=== PATIENT | male | born 1975 | race Native Hawaiian/Other Pacific Islander ===

== ENCOUNTER → 2019-07-10 09:22 | Outpatient (CLI) | payer BC, SELFPAY ==
[2019-07-10 10:26] LABS: Alanine Aminotransferase 112 IU/L (21-72); Albumin 4.9 g/dL (3.5-5.0); Albumin Globulin Ratio 1.4 (1.0-2.8); Alkaline Phosphatase 62 U/L (38-126); Aspartate Aminotransferase 55 IU/L (17-59); BUN Creatinine Ratio 18.2 (6-22); Bilirubin Total 0.8 mg/dL (0.2-1.3); Blood Urea Nitrogen 20 mg/dL (9-20); Calcium 9.6 mg/dL (8.4-10.2); Carbon Dioxide 29 mmol/L (22-32); Chloride 99 mmol/L (98-107); Cholesterol 215 mg/dL (140-199); Estimated Glomerular Filt Rate > 60.0 mL/min (>60); Globulin 3.6 g/dL (1.7-4.1); Glucose 96 mg/dL (70-100); HDL Cholesterol 54 mg/dL (40-60); HEMOLYSIS < 15 (0-50); LDL Cholesterol Calculated 124 mg/dL (<100); Potassium 4.2 mmol/L (3.4-5.1); Sodium 139 mmol/L (137-145); Total Protein 8.5 g/dL (6.3-8.2); Triglycerides 187 mg/dL (35-150)
[2019-07-10 10:35] LABS: Hematocrit 48.1 % (41-53); Hemoglobin 16.4 g/dL (13.5-17.5); Mean Corpuscular HGB Conc 34.1 % (30-36); Mean Corpuscular Hemoglobin 30.8 PG (26-34); Mean Corpuscular Volume 90.1 fL (80-100); Platelet Count 209 X10^3/uL (150-400); Red Blood Cell Count 5.34 X10^6/uL (4.5-5.9); Red Cell Distribution Width 12.3 % (11.6-14.8); White Blood Cell Count 6.3 X10^3/uL (4.5-11.0)
== END ==
PROVIDERS: Visit Provider Nurse Practitioner Family
DX: Z00.00 Encounter for general adult medical examination without abnormal findings (principal); Z13.6 Encounter for screening for cardiovascular disorders
CPT/HCPCS: 36415; 80053; 80061; 85027

== ENCOUNTER 2019-07-30 14:30 | Day surgery (SDC) | payer BC, SELFPAY ==
[2019-07-30] VITALS (7 sets, daily range): BP systolic 119–149; BP diastolic 82–101; PULSE 66–92; RESP 6–16; TEMP 36.5–37.4; O2SAT 94–99; BMI 29.1
--- NOTE | 2019-07-30 | PATH_ITS ---
[facility] Accession Number: [id number] . 01 Material submitted: . colon - COLON POLYPS AT 30 CM . 02 Diagnosis: Colon Polyps at 30 cm: Portions of tubular adenoma x2. MRV 07/31/2019 1309 Local . 02 Electronically signed: . Rita Chapman MD, Pathologist NPI- [id number] . 01 Gross description: . COLON POLYPS AT 30 CM: Received in formalin are 2 fragment(s) of brunson, soft tissue measuring 0.1 x 0.1 x 0.1 cm to 0.4 x 0.3 x 0.2 cm submitted entirely in 1 cassette(s) /[facility] 07/31/2019 0025 Local . 02 Pathologist provided ICD-10: K63.5, Z12.11, K21.9 . 02 CPT . 264041 Performed at: [address] [facility] [address] [facility], [place], [place] [id number] MD Yazan Almaraz MD Phone: [phone] Performed at: [address] [facility] [address] [place], [place] [id number] MD Cherie Pacheco MD Phone: [phone]
[2019-07-30] MEDS: SODIUM CHLORIDE 0.9% 1,000 ML 200 ML IV (15:20)
--- NOTE | 2019-07-30 15:25 | PM.HP.1 ---
History of Present Illness History of Present Illness Chief complaint: [id number] Narrative: This is a 43 y.o man with longstanding GERD x 20 yrs no prior upper endoscopy.. Symptoms are well controlled with Omeprazole 20 mg QD. No dysphagia, hx of ulcer, weight loss. In addition they had recent bright red blood per rectum. Patient presents for colorectal screening. They have never had any previous examination for such. On further history denies any recent gastrointestinal symptoms. Patient History Medical History Chronic back pain (Chronic) GERD (gastroesophageal reflux disease) (Acute 2008) Headache (Chronic) Kidney stones (Chronic) Migraine with aura (Acute 1996) Mixed hyperlipidemia (Acute 06/2019) Family & Social History Family History Father Cancer Diabetes mellitus Brother Hypertension Grandfather Cancer Hypertension Social History: household members significant other Tobacco & Substance use: Smoking Status Former smoker alcohol intake current Meds Home Medications and Allergies Home Medications Medication Instructions Recorded Confirmed Type omeprazole 20 mg capsule,delayed 20 mg PO DAILY #90 cap 07/09/19 07/30/19 Rx release lwdvasv-fyfybvgwkssfd-yhtqobkc 250 1 tab PO Q4-6H PRN 07/22/19 07/30/19 History mg-250 mg-65 mg tablet Allergies Allergy/AdvReac Type Severity Reaction Status Date / Time No Known Drug Allergies Allergy Verified 07/30/19 14:57 Review of Systems Review of Systems ROS Unobtainable: All systems reviewed & are unremarkable except as noted in HPI and below Exam Vital Signs (past 8 hours): - 07/30/19 14:59 Temperature 97.7 F Pulse Rate 92 H Respiratory Rate 16 Blood Pressure 149/89 H Pulse Oximetry 96 Oxygen Delivery Method Room Air Narrative Exam Narrative: General-no acute distress, well nourished HEENT-moist mucous membranes, no scleral icterus Neck-supple, no lymphadenopathy Chest- non labored respirations, clear to auscultation bilaterally Cardiac-regular rate no peripheral edema Abdomen-soft, nontender, non distended Extremities-warm, well perfused Neurological-alert and oriented, no focal deficits Assessment & Plan Assessment & Plan narrative: The patient requires colorectal screening and colonoscopy is recommended. In addition they require EGD for screening secondary to longstanding GERD. Technical details were discussed. Risks, benefits, alternatives explained. Risks including but not limited to myocardial infarction, aspiration, bleeding, pain, missed lesion, incomplete examination, need for further radiographic studies, colonic perforation, and need for major abdominal surgery were discussed. All questions were answered to their satisfaction, and they are in agreement with this plan.
[2019-07-30] MEDS: LIDOCAINE 4% SOLN 50 ML 20 ML TOP (15:40)
[2019-07-30] MEDS: MIDAZOLAM 5 MG/5 ML VIAL IV ×2 (15:45→15:54)
[2019-07-30] MEDS: fentaNYL 250 MCG/5 ML INJ IV (15:54)
--- NOTE | 2019-07-30 16:23 | PM.OP.1 ---
Operative Date/Time/Diagnoses Date of procedure: 07/30/19 Time of procedure: 16:24 Pre-op diagnosis: Rectal bleeding Chronic gastroesophageal reflux disease Post-op diagnosis: same Procedure & Clinicians Procedure: Esophagoduodenoscopy Colonoscopy Same procedure as scheduled: Yes Indications: This is a 43-year-old male with 20 years of gastroesophageal reflux disease who presents for screening esophagoduodenoscopy. In addition he had recently had some episodes of bright red blood per rectum which have spontaneously resolved. Surgeon: Michael Sun Anesthesia Type: General Operative Notes Findings: Adenomatous appearing polyp at 30 cm from anal verge Specimen(s): other (polyp at 30 cm from anal verge) Procedure in detail: Patient placed in left lateral decubitus position. Time out was performed. Procedural sedation was administered with Versed and Fentanyl. A bite block was placed. the scope was inserted into the mouth and advanced through the esophagus and into the stomach. The pylorus was intubated and the duodenum was normal. The scope was retroflexed within the stomach and there was no hiatal hernia. No ulcers, or gastritis. The scope was withdrawn into the esophagus the Z line was seen at 40 cm from the incisions. There was no harris's esophagitis or masses or strictures. Stomach was desufflated and scope removed. Patient placed in left lateral decubitus position. Time out was performed. Procedural sedation was administered with Versed and Fentanyl. A rectal exam demonstrated no external hemorrhoids no internal masses. Colonoscopy scope was placed into the rectum and advanced through the colon to the cecum. The ileocecal valve was identified. The scope was then slowly withdrawn examining colon thoroughly in all directions. The colonoscopy was notable for the following 1. Adenomatous appearing polyp at 30 cm resected with hot snare and hemostatic 2. Good quality prep 3. Scope withdrawl time 16 min, sedation time 40 min Post-operative Disposition: same day surgery
--- NOTE | 2019-07-30 17:20 | SUR.PHASEII ---
Reviewed DC instructions w/family member. IV D/C'd and pt independent in dressing. VSS . Escorted by [facility] to ED entrance
== END 2019-07-30 17:25 | disposition home or self-care (01) ==
PROVIDERS: Family Provider Nurse Practitioner Family; PCP Nurse Practitioner Family; Visit Provider Surgery
PROC: 0DJ08ZZ Inspection of Upper Intestinal Tract, Via Natural or Artificial Opening Endoscopic (ICD-10-PCS; CPT 43235; principal; 2019-07-30 16:00)
PROC: 0DJD8ZZ Inspection of Lower Intestinal Tract, Via Natural or Artificial Opening Endoscopic (ICD-10-PCS; CPT 45378; 2019-07-30 16:00)
DX: K62.5 Hemorrhage of anus and rectum (principal); K21.9 Gastro-esophageal reflux disease without esophagitis; K63.5 Polyp of colon
CPT/HCPCS: 45385; 43235; 99152; 99153; J2250; J3010

== ENCOUNTER 2019-08-03 01:11 | Emergency (ER) | payer BC, SELFPAY ==
[2019-08-03 01:27] VITALS: BP 145/79; PULSE 81; RESP 16; TEMP 36.7; O2SAT 97
--- NOTE | 2019-08-03 01:40 | DI.CT.S_ITS ---
PROCEDURE: CT ABDOMEN PELVIS W CON INDICATIONS: Recent colonoscopy with abdominal pain and rectal bleeding TECHNIQUE: After the administration of intravenous contrast, 5 mm thick sections acquired from the diaphragm to the symphysis. 5 mm coronal and sagittal reformats were acquired. For radiation dose reduction, the following was used: automated exposure control, adjustment of mA and/or kV according to patient size. COMPARISON: None. FINDINGS: Image quality: Excellent. ABDOMEN: Lung bases: Lung bases are clear. Heart size is normal. Solid organs: Liver is normal in size and enhancement. Gallbladder is normal. Biliary system is non dilated. Pancreas enhances normally. Spleen is normal in size and enhancement. No adrenal nodules. Kidneys demonstrate normal size and enhancement, without hydronephrosis. Probable 2 mm nonobstructive left renal stone. A 1 cm exophytic cortical nodule in the inferior pole of the right kidney is most likely a cyst. Peritoneum and bowel: Bowel loops demonstrate normal wall thickness and caliber. There are a few colonic diverticula. No free fluid or air. Nodes and vessels: No retroperitoneal or mesenteric adenopathy by size criteria. Aorta and inferior vena cava are normal in size. Miscellaneous: No ventral hernias. PELVIS: Genitourinary: Bladder wall thickness is normal. Miscellaneous: No inguinal hernias or adenopathy. Bones: Sclerotic bony lesions in the left femoral head are consistent with bone islands. No vertebral body compression fractures. IMPRESSION: 1. No acute intra-abdominal process. 2. Mild diverticulosis without diverticulitis. 3. A 2 mm nonobstructive left renal stone is suspected. No significant discrepancy with the drafter refrigeration radiology preliminary report. Dictated by: Alon Mendez M.D. on 08/03/2019 at 7:27 Approved by: Alon Mendez M.D. on 08/03/2019 at 7:32
--- NOTE | 2019-08-03 01:41 | ED_ITS ---
HPI - GI Bleed General Chief complaint: GI Bleed Stated complaint: rectal bleeding, had colonoscopy thurs Time Seen by Provider: 08/03/19 01:31 Source: patient Mode of arrival: Ambulatory Limitations: no limitations History of Present Illness HPI Narrative: 43-year-old male here for evaluation of rectal bleeding. Three days ago he underwent a upper endoscopy and colonoscopy. According to that operative report he did have 1 polyp removed. This colonoscopy was performed because the patient was having episodes of rectal bleeding. According to the operative note did seem to be fairly uncomplicated procedure. Patient states that he has had a normal bowel movement since the procedure. On Saturday he had 1 episode of some bright red blood on the toilet paper after he wiped. He then states that today he was at work when he had some abdominal pain. States that he felt like he had to go to the bathroom and when he went to have a bowel movement it was a large clot of bright red blood. He does feel like that is abdomen is somewhat distended. No fevers. Related Data Home Medications Medication Instructions Recorded Confirmed dccfsad-pacxgtavflfrl-dtyxiflk 250 1 tab PO Q4-6H PRN 07/22/19 07/30/19 mg-250 mg-65 mg tablet Previous Rx's Medication Instructions Recorded omeprazole 20 mg capsule,delayed 20 mg PO DAILY #90 cap 07/09/19 release Allergies Allergy/AdvReac Type Severity Reaction Status Date / Time No Known Drug Allergies Allergy Verified 07/30/19 14:57 Review of Systems Constitutional Constitutional: Denies fever(s) Cardiovascular Cardiovascular: Denies chest pain and Denies dyspnea Respiratory Respiratory: Denies dyspnea Gastrointestinal Gastrointestinal: Denies abdominal pain, Reports bloating, Reports cramping and Denies vomiting Comments: Rectal bleeding Genitourinary Genitourinary: Denies dysuria Musculoskeletal Musculoskeletal: Denies myalgias and Denies arthralgias Integumentary/Breasts Skin/Breast: Denies rash Neurologic Neurologic: Denies behavioral changes Psychiatric Psychiatric: Denies behavioral changes Hematologic/Lymphatic Hematologic/Lymphatic: Denies easy bleeding and Denies easy bruising Patient History Medical History Chronic back pain (Chronic) GERD (gastroesophageal reflux disease) (Acute 2008) Headache (Chronic) Kidney stones (Chronic) Migraine with aura (Acute 1996) Mixed hyperlipidemia (Acute 06/2019) Social History household members: significant other Smoking Status: Former smoker Tobacco: How many years used: 1 Smokeless tobacco user: chewing tobacco (2 cans per day.) quit status: considering quitting second hand exposure: No alcohol intake: current (a glass of wine or one beer once every couple weeks) substance use type: does not use alcohol intake frequency: holidays/special occasions only Substance Use Type: does not use Exam Initial Vital Signs Initial Vital Signs: Vital Signs Temperature 98.1 F 08/03/19 01:27 Pulse Rate 81 08/03/19 01:27 Respiratory Rate 16 08/03/19 01:27 Blood Pressure 145/79 H 08/03/19 01:27 Pulse Oximetry 97 08/03/19 01:27 Const General: cooperative, comfortable and well developed Orientation: alert and awake HENMT Head: normal to inspection and normocephalic Resp Effort & Inspection: normal respiratory effort Auscultation: clear to auscultation bilaterally Cardio Rate: regular rate Rhythm: regular rhythm GI Inspection: distended Palpation: soft, No firm and No tender Skin Lesions: no lesions Rashes: no rashes Neuro General: alert and awake Cognition: normal cognition Speech: speech normal Motor: muscle tone normal throughout Extrem General: normal to inspection and capillary refill normal Psych Appearance: grossly normal and well kempt Course Orders Ordered: ED Orders 08/03/19 01:40 CT abdomen pelvis w con Stat CBC Auto Diff [Complete Blood Count AUTO DIFF] Stat Comprehensive Metabolic Panel Stat Lipase Stat Discontinued Medications Sodium Chloride (Normal Saline 0.9%) 1,000 mls @ 1,000 mls/hr IV BOLUS ONE Stop: 08/03/19 02:39 Last Admin: 08/03/19 02:39 Dose: 1,000 mls/hr Documented by: ARUN Vital Signs Vital signs: Vital Signs - 8 hr 08/03/19 01:27 Temperature 98.1 F Pulse Rate 81 Respiratory Rate 16 Blood Pressure 145/79 H Pulse Oximetry 97 MDM - GI Bleed Lab Data Attestation: I reviewed the patient's lab results. Result diagrams: 08/03/19 01:40 08/03/19 01:40 Labs: Lab Results 08/03/19 08/03/19 Range/Units 01:40 01:40 WBC 6.6 (4.5-11.0) X10^3/uL RBC 4.95 (4.5-5.9) X10^6/uL Hgb 15.2 (13.5-17.5) g/dL Hct 43.9 (41-53) % MCV 88.8 (80-100) fL MCH 30.6 (26-34) PG MCHC 34.5 (30-36) % RDW 12.2 (11.6-14.8) % Plt Count 202 (150-400) X10^3/uL Neut % (Auto) 61.9 (50-75) % Lymph % (Auto) 26.7 (25-40) % [place] % (Auto) 6.8 (3-14) % Eos % (Auto) 4.0 (2-4) % Baso % (Auto) 0.6 (0-2) % Neut # (Auto) 4100 (7265-0915) /uL Lymph # (Auto) 1800 (2091-7523) /uL [place] # (Auto) 400 (0-900) /uL Eos # (Auto) 300 (0-450) /uL Baso # (Auto) 0 (0-100) /uL Sodium 137 (137-145) mmol/L Potassium 3.9 (3.4-5.1) mmol/L Chloride 101 (98-107) mmol/L Carbon Dioxide 29 (22-32) mmol/L BUN 16 (9-20) mg/dL Creatinine 1.10 (0.66-1.25) mg/dL Estimated GFR > 60.0 (>60) mL/min BUN/Creatinine Ratio 14.5 (6-22) Glucose 105 H (70-100) mg/dL Calcium 9.3 (8.4-10.2) mg/dL Total Bilirubin 0.6 (0.2-1.3) mg/dL AST 39 (17-59) IU/L ALT 66 H (<50) IU/L Alkaline Phosphatase 57 (38-126) U/L Total Protein 7.7 (6.3-8.2) g/dL Albumin 4.7 (3.5-5.0) g/dL Globulin 3.0 (1.7-4.1) g/dL Albumin/Globulin Ratio 1.6 (1.0-2.8) Lipase 110 (23-300) U/L Imaging Data CT scan - abdomen: Radiologist's impression: No acute abnormality appreciated. No colon wall trauma is apparent. Small nonobstructing left renal stone. Small right renal cyst MDM Narrative Medical decision making narrative: Patient does have a relatively benign abdominal exam. Labs unremarkable. CT scan was performed because he was having some abdominal distension and given his recent history of a colonoscopy the concern was for potential perforation. There is no signs of free air on the CT scan. I do suspect that the rectal bleeding is secondary to the colonoscopy and the polyp removal. I provided reassurance to the patient. I do not feel that emergent surgical consultation is needed. Patient was instructed to continue all of his postoperative instructions. He expressed understanding and agreement plan. Discharge Plan Departure Patient Disposition: Home Clinical Impression: Rectal bleeding Instructions: DI for Rectal Bleeding Activity Restrictions/Additional Instructions: I do suspect that the bleeding is secondary to the polyp removal from your recent colonoscopy. Recommend that you follow all of your postoperative instructions given by the surgeon. Keep all of your scheduled medical appoin tments. Return to the emergency department for any new or worsening symptoms Prescriptions: No Action omeprazole 20 mg capsule,delayed release(DR/EC) 20 mg PO DAILY Qty: 90 RF: 0 Excedrin Migraine 250-250-65 mg tablet 1 tab PO Q4-6H PRN (Reason: Headache) RF: 0 Referrals: Baldomero Lopez ARNP [Primary Care Provider] -
[2019-08-03 01:51] LABS: Add Manual Diff / Slide Review NO; Basophils Absolute Auto 0 /uL (0-100); Basophils Percent Auto 0.6 % (0-2); Eosinophils Absolute Auto 300 /uL (0-450); Hematocrit 43.9 % (41-53); Hemoglobin 15.2 g/dL (13.5-17.5); Lymphocytes Absolute Auto 1800 /uL (1100-4500); Lymphocytes Percent Auto 26.7 % (25-40); Mean Corpuscular HGB Conc 34.5 % (30-36); Mean Corpuscular Hemoglobin 30.6 PG (26-34); Mean Corpuscular Volume 88.8 fL (80-100); Monocytes Absolute Auto 400 /uL (0-900); Monocytes Percent Auto 6.8 % (3-14); Neutrophils Absolute Auto 4100 /uL (1500-7000); Neutrophils Percent Auto 61.9 % (50-75); Platelet Count 202 X10^3/uL (150-400); Red Blood Cell Count 4.95 X10^6/uL (4.5-5.9); Red Cell Distribution Width 12.2 % (11.6-14.8); White Blood Cell Count 6.6 X10^3/uL (4.5-11.0)
[2019-08-03 02:02] LABS: Alanine Aminotransferase 66 IU/L (<50); Albumin 4.7 g/dL (3.5-5.0); Albumin Globulin Ratio 1.6 (1.0-2.8); Alkaline Phosphatase 57 U/L (38-126); Aspartate Aminotransferase 39 IU/L (17-59); BUN Creatinine Ratio 14.5 (6-22); Bilirubin Total 0.6 mg/dL (0.2-1.3); Blood Urea Nitrogen 16 mg/dL (9-20); Calcium 9.3 mg/dL (8.4-10.2); Carbon Dioxide 29 mmol/L (22-32); Chloride 101 mmol/L (98-107); Estimated Glomerular Filt Rate > 60.0 mL/min (>60); Glucose 105 mg/dL (70-100); HEMOLYSIS < 15 (0-50); Lipase 110 U/L (23-300); Potassium 3.9 mmol/L (3.4-5.1); Sodium 137 mmol/L (137-145); Total Protein 7.7 g/dL (6.3-8.2)
[2019-08-03] MEDS: SODIUM CHLORIDE 0.9% 1,000 ML 1000 ML IV (02:39)
[2019-08-03 03:50] VITALS: BP 138/79; PULSE 75; RESP 16; TEMP 36.6; O2SAT 97
== END 2019-08-03 03:50 | disposition home or self-care (01) ==
PROVIDERS: Emergency Provider Emergency Medicine; Family Provider Nurse Practitioner Family; PCP Nurse Practitioner Family
DX: K62.5 Hemorrhage of anus and rectum (principal); Z86.010 Personal history of colon polyps
CPT/HCPCS: 36415; 74177; 80053; 83690; 85025; 96360; 99283; 99284; Q9967

== ENCOUNTER 2021-07-13 20:09 | Emergency (ER) | payer BC, SELFPAY ==
[2021-07-13 20:22] VITALS: BP 135/87; PULSE 120; RESP 18; TEMP 37.6; O2SAT 93; BMI 29.2
--- NOTE | 2021-07-13 20:26 | DI.RAD.S_ITS ---
PROCEDURE: XR CHEST 2V INDICATIONS: sob,covid positive TECHNIQUE: 2 views of the chest were acquired. COMPARISON: None. FINDINGS: Surgical changes and devices: None. Lungs and pleura: Patchy bilateral mid and lower lung alveolar opacities predominantly in the periphery. No pleural effusion or pneumothorax. Mediastinum: Mediastinal contours are normal. Heart size is normal. Bones and chest wall: No suspicious bony abnormalities. Soft tissues appear unremarkable. IMPRESSION: 1. Multifocal bilateral mid and lower lung alveolar opacities consistent with history of COVID-19 pneumonia. Dictated by: Raquel Pastor M.D. on 07/13/2021 at 21:17 Approved by: Raquel Pastor M.D. on 07/13/2021 at 21:18
[2021-07-13 21:36] VITALS: PULSE 96; O2SAT 96
[2021-07-13 22:00] VITALS: BP 137/91; PULSE 97; RESP 22; O2SAT 96
--- NOTE | 2021-07-13 22:00 | PC.NURSE ---
Reports Covid+ for 8 days, tested at [facility].
[2021-07-13] MEDS: KETOROLAC 30 MG/ML VIAL 15 MG IV (22:22)
[2021-07-13 22:29] LABS: Add Manual Diff / Slide Review NO; Basophils Absolute Auto 0 /uL (0-100); Basophils Percent Auto 0.2 % (0-2); Eosinophils Absolute Auto 0 /uL (0-450); Eosinophils Percent Auto 0.2 % (2-4); Hematocrit 48.6 % (41-53); Lymphocytes Absolute Auto 700 /uL (1100-4500); Mean Corpuscular Hemoglobin 29.7 PG (26-34); Mean Corpuscular Volume 90.2 fL (80-100); Monocytes Absolute Auto 400 /uL (0-900); Monocytes Percent Auto 8.2 % (3-14); Neutrophils Absolute Auto 3200 /uL (1500-7000); Neutrophils Percent Auto 74.4 % (50-75); Platelet Count 116 X10^3/uL (150-400); Red Blood Cell Count 5.39 X10^6/uL (4.5-5.9); Red Cell Distribution Width 12.4 % (11.6-14.8); White Blood Cell Count 4.3 X10^3/uL (4.5-11.0)
[2021-07-13 22:30] VITALS: BP 134/86; PULSE 101; TEMP 39.1; O2SAT 97
[2021-07-13 22:32] LABS: Alanine Aminotransferase 79 IU/L (<50); Albumin 4.3 g/dL (3.5-5.0); Albumin Globulin Ratio 1.2 (1.0-2.8); Alkaline Phosphatase 122 U/L (38-126); Aspartate Aminotransferase 59 IU/L (17-59); BUN Creatinine Ratio 8.2 (6-22); Bilirubin Total 0.4 mg/dL (0.2-1.3); Blood Urea Nitrogen 9 mg/dL (9-20); Calcium 8.8 mg/dL (8.4-10.2); Carbon Dioxide 31 mmol/L (22-32); Chloride 97 mmol/L (98-107); Creatine Kinase 80 U/L (55-170); Estimated Glomerular Filt Rate > 60.0 mL/min (>60); Globulin 3.5 g/dL (1.7-4.1); Glucose 109 mg/dL (70-100); HEMOLYSIS < 15 (0-50); Potassium 3.8 mmol/L (3.4-5.1); Sodium 137 mmol/L (137-145); Total Protein 7.8 g/dL (6.3-8.2)
[2021-07-13 22:34] LABS: D Dimer 204 ng/mL (<230)
[2021-07-13] MEDS: ACETAMINOPHEN 325 MG TABLET 975 MG PO (22:38)
[2021-07-13 22:45] LABS: NT-proBNP (BNP-Adult 18+) < 11 pg/mL (<125); Troponin I < 0.012 ng/mL (0.01-0.034)
[2021-07-13 23:00] VITALS: BP 120/78; PULSE 94; O2SAT 97
[2021-07-13 23:30] VITALS: BP 113/77; PULSE 85; O2SAT 96
--- NOTE | 2021-07-13 23:41 | ED.SOB ---
HPI - SOB/Dyspnea General Chief Complaint: Upper Respiratory Symptoms Stated Complaint: covid +, cough, short of breath Time Seen by Provider: 07/13/21 22:18 Source: patient Mode of arrival: Ambulatory Limitations: no limitations History of Present Illness HPI Narrative: This is a 45-year-old testing COVID positive 8 days ago. Patient initially started with chills, fevers and myalgias some mild nausea. He developed shortness of breath in the last 24 hours. He has also had generalized body aches but some right lower back discomfort. Patient states he continues to be nauseated. He denies any diarrhea or constipation. He has not had any urinary issues, no frequency dysuria or difficulty with urination. Patient has not any rashes or skin changes. He denies any medical issues. No known drug allergies. Related Data Home Medications Medication Instructions Recorded Confirmed [id number] 250 1 tab PO Q4-6H PRN 07/22/19 08/03/19 mg-250 mg-65 mg tablet (Excedrin Migraine) Previous Rx's Medication Instructions Recorded omeprazole 20 mg capsule,delayed 20 mg PO DAILY #90 cap 07/09/19 release ondansetron 4 mg disintegrating 4 mg PO QID PRN #10 tab 07/14/21 tablet Allergies Allergy/AdvReac Type Severity Reaction Status Date / Time No Known Drug Allergies Allergy Verified 08/03/19 13:01 Review of Systems Review of Systems ROS Unobtainable: All systems reviewed & are unremarkable except as noted in HPI and below Patient History Medical History Chronic back pain Elevated fasting blood sugar Elevated liver enzymes GERD (gastroesophageal reflux disease) (2008) Headache Kidney stones Migraine with aura (1996) Mixed hyperlipidemia (06/2019) Family History Father Cancer Diabetes mellitus Brother Hypertension Grandfather Cancer Hypertension Social History household members: significant other Smoking Status: Former smoker Tobacco: How many years used: 1 Smokeless tobacco user: chewing tobacco (2 cans per day.) quit status: considering quitting second hand exposure: No alcohol intake: current (a glass of wine or one beer once every couple weeks) substance use type: does not use Smoking Status: Former smoker alcohol intake frequency: holidays/special occasions only Substance Use Type: does not use Exam Narrative Exam Narrative: GENERAL: Alert and oriented x three, male in mild distress. No diaphoresis. HEENT: Head normocephalic, atraumatic, EOMI, pupils reactive, face symmetric, moist mucous membranes NECK: Supple, full range of motion CARDIOVASCULAR: Regular rate and rhythm without murmurs, rubs or gallops. RESPIRATORY: Breath sounds equal bilaterally, no wheezes rales or rhonchi. No tachypnea. No accessory muscle use. ABDOMEN: Soft, nontender. Normoactive bowel sounds all 4 quadrants. No guarding or rebound, rigidity, no mass : No CVA tenderness EXTREMITIES: Normal range of motion, no clubbing or edema. Neurovascularly intact NEUROLOGICAL: Cranial nerves II through XII grossly intact. Moving all extremities SKIN: Warm, dry, no petechiae, no rashes or lesions. Initial Vital Signs Initial Vital Signs: Vital Signs Temperature 99.7 F H 07/13/21 20:22 Pulse Rate 120 H 07/13/21 20:22 Respiratory Rate 18 07/13/21 20:22 Blood Pressure 135/87 07/13/21 20:22 Pulse Oximetry 93 07/13/21 20:22 Course Orders Ordered: ED Orders 07/13/21 21:37 Complete Blood Count AUTO DIFF Stat Comprehensive Metabolic Panel Stat D Dimer Stat Lactate (Lactic Acid) Stat NT-proBNP (BNP-Adult 18+) Stat Troponin & CK Cardiac Panel Stat 07/13/21 22:18 EKG-12 Lead Stat 07/13/21 22:42 Blood Culture Stat Discontinued Medications Acetaminophen (Acetaminophen 325 Mg Tablet) 975 mg PO NOW ONE Stop: 07/13/21 22:36 Last Admin: 07/13/21 22:38 Dose: 975 mg Documented by: ATAYLOR Ketorolac Tromethamine (Ketorolac 30 Mg/Ml Vial) 15 mg IV NOW ONE Stop: 07/13/21 22:20 Last Admin: 07/13/21 22:22 Dose: 15 mg Documented by: ATAYLOR Ondansetron HCl (Ondansetron 4 Mg/2 Ml Inj) 4 mg IV NOW ONE Stop: 07/14/21 00:50 Last Admin: 07/14/21 01:05 Dose: 4 mg Documented by: AYAAL Vital Signs Vital signs: Vital Signs - 8 hr 07/13/21 22:00 07/13/21 22:30 07/13/21 23:00 Temperature 102.4 F H Pulse Rate 97 H 101 H 94 H Respiratory Rate 22 Blood Pressure 137/91 H 134/86 120/78 Pulse Oximetry 96 97 97 07/13/21 23:30 07/14/21 00:00 07/14/21 00:30 Temperature Pulse Rate 85 87 89 Respiratory Rate Blood Pressure 113/77 107/78 Pulse Oximetry 96 97 95 07/14/21 00:31 07/14/21 01:00 Temperature Pulse Rate 91 H 89 Respiratory Rate Blood Pressure 106/78 Pulse Oximetry 95 95 MDM - SOB/Dyspnea Lab Data Result diagrams: 07/13/21 21:37 07/13/21 21:37 Labs: Lab Results 07/13/21 07/13/21 07/13/21 Range/Units 21:37 21:37 21:37 WBC 4.3 L (4.5-11.0) X10^3/uL RBC 5.39 (4.5-5.9) X10^6/uL Hgb 16.0 (13.5-17.5) g/dL Hct 48.6 (41-53) % MCV 90.2 (80-100) fL MCH 29.7 (26-34) PG MCHC 33.0 (30-36) % RDW 12.4 (11.6-14.8) % Plt Count 116 L (150-400) X10^3/uL Neut % (Auto) 74.4 (50-75) % Lymph % (Auto) 17.0 L (25-40) % [place] % (Auto) 8.2 (3-14) % Eos % (Auto) 0.2 L (2-4) % Baso % (Auto) 0.2 (0-2) % Neut # (Auto) 3200 (0815-2445) /uL Lymph # (Auto) 700 L (8309-2074) /uL [place] # (Auto) 400 (0-900) /uL Eos # (Auto) 0 (0-450) /uL Baso # (Auto) 0 (0-100) /uL D-Dimer 204 (<230) ng/mL Sodium 137 (137-145) mmol/L Potassium 3.8 (3.4-5.1) mmol/L Chloride 97 L (98-107) mmol/L Carbon Dioxide 31 (22-32) mmol/L BUN 9 (9-20) mg/dL Creatinine 1.10 (0.66-1.25) mg/dL Estimated GFR > 60.0 (>60) mL/min BUN/Creatinine Ratio 8.2 (6-22) Glucose 109 H (70-100) mg/dL Lactate (0.7-2.1) mmol/L Calcium 8.8 (8.4-10.2) mg/dL Total Bilirubin 0.4 (0.2-1.3) mg/dL AST 59 (17-59) IU/L ALT 79 H (<50) IU/L Alkaline Phosphatase 122 (38-126) U/L Total Creatine Kinase 80 (55-170) U/L CK-MB (CK-2) TNP CK-MB (CK-2) Rel Index TNP Troponin I < 0.012 (0.01-0.034) ng/mL NT-Pro-B Natriuret Pep < 11 (<125) pg/mL Total Protein 7.8 (6.3-8.2) g/dL Albumin 4.3 (3.5-5.0) g/dL Globulin 3.5 (1.7-4.1) g/dL Albumin/Globulin Ratio 1.2 (1.0-2.8) 07/13/ Range/Units 21:37 WBC (4.5-11.0) X10^3/uL RBC (4.5-5.9) X10^6/uL Hgb (13.5-17.5) g/dL Hct (41-53) % MCV (80-100) fL MCH (26-34) PG MCHC (30-36) % RDW (11.6-14.8) % Plt Count (150-400) X10^3/uL Neut % (Auto) (50-75) % Lymph % (Auto) (25-40) % [place] % (Auto) (3-14) % Eos % (Auto) (2-4) % Baso % (Auto) (0-2) % Neut # (Auto) (5286-1342) /uL Lymph # (Auto) (6355-3797) /uL [place] # (Auto) (0-900) /uL Eos # (Auto) (0-450) /uL Baso # (Auto) (0-100) /uL D-Dimer (<230) ng/mL Sodium (137-145) mmol/L Potassium (3.4-5.1) mmol/L Chloride (98-107) mmol/L Carbon Dioxide (22-32) mmol/L BUN (9-20) mg/dL Creatinine (0.66-1.25) mg/dL Estimated GFR (>60) mL/min BUN/Creatinine Ratio (6-22) Glucose (70-100) mg/dL Lactate 1.0 (0.7-2.1) mmol/L Calcium (8.4-10.2) mg/dL Total Bilirubin (0.2-1.3) mg/dL AST (17-59) IU/L ALT (<50) IU/L Alkaline Phosphatase (38-126) U/L Total Creatine Kinase (55-170) U/L CK-MB (CK-2) CK-MB (CK-2) Rel Index Troponin I (0.01-0.034) ng/mL NT-Pro-B Natriuret Pep (<125) pg/mL Total Protein (6.3-8.2) g/dL Albumin (3.5-5.0) g/dL Globulin (1.7-4.1) g/dL Albumin/Globulin Ratio (1.0-2.8) Imaging Data Chest x-ray: Radiologist's Impression: Launch?[address] [address] XRay Report Signed Patient: Marek Anand MR#: [id number] : 1975 Acct:[id number] Age/Sex: 45 / M Date of Service: 07/13/21 Loc: ED Accession Number: [id number] ?? Procedure: XR chest 2V Ordering Provider: Griselda Dubon D.O. PROCEDURE:? XR CHEST 2V ? INDICATIONS:? sob,covid positive ? TECHNIQUE:? 2 views of the chest were acquired.? ? COMPARISON:? None. ? FINDINGS:? ? Surgical changes and devices:? None.? ? Lungs and pleura:? Patchy bilateral mid and lower lung alveolar opacities predominantly in the periphery.? No pleural effusion or pneumothorax. ? Mediastinum:? Mediastinal contours are normal.? Heart size is normal.? ? Bones and chest wall:? No suspicious bony abnormalities.? Soft tissues appear unremarkable.? ? IMPRESSION:? 1. Multifocal bilateral mid and lower lung alveolar opacities consistent with history of COVID-19 pneumonia. ? ? Dictated by: Raquel Pastor M.D. on 07/13/2021 at 21:17 ? ? Approved by: Raquel Pastor M.D. on 07/13/2021 at 21:18?? ECG Data Attestation: I personally reviewed and interpreted this ECG as follows: Prior ECG tracings: not available for review Interpretation: Sinus rhythm rate of 90 TX 124 QRS of 78 QTC of 428. No acute ST changes appreciated. No priors for comparison. MDM Narrative Medical decision making narrative: This is a 45-year-old male with known COVID who was tachycardic initially upon arrival. He has never dropped his sats below 93%. He has not been hypotensive. He was tachypneic with exertion but not when seated. He does have COVID pneumonia on x-ray. Labs are otherwise reassuring. Has had some lower back pain. He does find his breathing improved when he prones at home but it bothers his right lower back to be in that position. Patient's ambulatory pulse ox never dipped below 93%. Patient denies any medical issues at this time would not meet criteria for admission but might for monoclonal antibodies with his BMI. At this time is BMI is 29. Patient had order form filled out and faxed including demographics form and insurance card and a copy was given to the patient as well. Patient did find Toradol somewhat helpful here in the department and was given some Tylenol for his fever as well. Also prescription for Zofran for nausea. Patient was encouraged to return he is feeling worse and we also discussed if feasible to obtain a pulse ox to monitor at home. Discharge Plan Departure Patient Disposition: Home Clinical Impression: Pneumonia due to 2019 novel coronavirus Instructions: DI for COVID-19 (Suspected or Confirmed ) Activity Restrictions/Additional Instructions: *You have been diagnosed with pneumonia secondary to COVID or coronavirus infection. If you wish you may obtain a pulse oximeter for use at home to monitor. Please return to the ER if your pulse oximeter shows an O2 saturation less than 92%. You can buy a pulse oximeter from the local pharmacy or on [employer]. You may take Tylenol up to a 1000 mg every 8 hours and or ibuprofen up to 600 mg every 6 hours. Take Zofran 1 tablet every 6 hours as needed for nausea. Prescription sent to [facility] in [place] You do meet criteria for a monoclonal antibody infusion. A sheet has been faxed within order. This is a one time outpatient infusion, the infusion center is in [place]. If they have availability they will contact you next 24-48 hours to schedule the infusion. This is a emergency authorized medication. *What to do: * per recommendations from the CDC and the [facility] Department of Health * stay home except to get medical care. Restrict activities outside your home, except for getting medical care. Do not go to work, school, or public areas. Avoid using public transportation, ride sharing, or taxis. * separate yourself from other people in your home. * call ahead before visiting your doctor * Wear a face mask * Cover your coughs and sneezes * Clean your hands often * Avoid sharing household items * Clean all high-touch services every day * Monitor your symptoms and seek prompt medical attention if your illness is worsening, particularly with difficulty in breathing. Discussed continuing home isolation * for individuals with symptoms who are confirmed or suspected cases of COVID-19 and are directed to care for themselves at home, discontinue home isolation under the following conditions: 1. At least 72 hours have passed since recovery, defined as resolution of fever without the use of fever reducing medications, and improvement in respiratory symptoms (cough, shortness of breath) AND, 2. At least 7 days have passed since symptoms 1st appeared Individuals with laboratory confirmed COVID-19 who have not had any symptoms may discontinue home isolation when at least 7 days have passed since the date of their 1st COVID-19 diagnostic test and have had no subsequent illness Prescriptions: New ondansetron 4 mg tablet,disintegrating 4 mg PO QID PRN (Reason: nausea and vomiting) Qty: 10 RF: 0 No Action omeprazole 20 mg capsule,delayed release(DR/EC) 20 mg PO DAILY Qty: 90 RF: 0 Excedrin Migraine 250-250-65 mg tablet 1 tab PO Q4-6H PRN (Reason: Headache) RF: 0 Referrals: Baldomero Lopez ARNP [Primary Care Provider] -
[2021-07-14] VITALS: BP 107/78; PULSE 87; O2SAT 97
[2021-07-14 00:30] VITALS: PULSE 89; O2SAT 95
[2021-07-14 00:31] VITALS: BP 106/78; PULSE 91; O2SAT 95
[2021-07-14 01:00] VITALS: PULSE 89; O2SAT 95
[2021-07-14] MEDS: ONDANSETRON 4 MG/2 ML INJ IV (01:05)
== END 2021-07-14 01:14 | disposition home or self-care (01) ==
PROVIDERS: Emergency Provider Emergency Medicine; Family Provider Nurse Practitioner Family; PCP Nurse Practitioner Family
DX: U07.1 COVID-19 (principal); J12.82 Pneumonia due to coronavirus disease 2019; R00.0 Tachycardia, unspecified; R11.0 Nausea
CPT/HCPCS: 71046; 80053; 82550; 83605; 83880; 84484; 85025; 85379; 87040; 93005; 93010; 96374; 96375; 99284; J1885; J2405